=== PATIENT | female | born 1970 | race Caucasian/White ===

== ENCOUNTER 2016-09-18 15:13 | Emergency (ER) | payer OTHER ==
--- NOTE | 2016-09-18 15:20 | PDOC ---
History of Present Illness <Rosie Londono - Last Filed: 09/18/16 17:57> - General History Source: Patient Exam Limitations: No Limitations - History of Present Illness Initial Comments: 45 yo F history hypothyroid presents with fatigue, weakness, abdominal pain, R flank pain. She states she has had urinary frequency and urgency for the past 1.5 weeks. She developed low back/flank pain and was prescribed percocet by her PMD for possible low back strain. However, the symptoms have not gone away. The urinary frequency has worsened, now she is urinating approximately 10 times per day. <Ekaterina Robison - Last Filed: 09/19/16 12:07> - General Chief Complaint: Urinary Problem Stated Complaint: urinary freq Time Seen by Provider: 09/18/16 15:20 Past History <Rosie Londono - Last Filed: 09/18/16 17:57> <Ekaterina Robison - Last Filed: 09/19/16 12:07> - Past Medical History Allergies/Adverse Reactions: Allergies Allergy/AdvReac Type Severity Reaction Status Date / Time fentanyl Allergy Verified 09/18/16 15:20 meperidine HCl [From Demerol] Allergy Verified 09/18/16 15:20 sulfamethoxazole AdvReac Verified 09/18/16 15:20 [From Bactrim] trimethoprim [From Bactrim] AdvReac Verified 09/18/16 15:20 Home Medications: Ambulatory Orders Sermorelin Acetate 0 gm MC ASDIR 09/18/16 Thyroid,Pork [[place] Thyroid] 60 mg PO DAILY 09/18/16 Review of Systems - Review of Systems Able to Perform ROS?: Yes Comments:: GENERAL/CONSTITUTIONAL: No fever or chills. +Weakness. HEAD, EYES, EARS, NOSE AND THROAT: No change in vision. No ear pain or discharge. No sore throat. CARDIOVASCULAR: No chest pain or shortness of breath. RESPIRATORY: No cough, wheezing, or hemoptysis. GASTROINTESTINAL: No nausea, vomiting, diarrhea or constipation. GENITOURINARY: No dysuria. +Frequency and urgency. +Flank pain. MUSCULOSKELETAL: No joint or muscle swelling or pain. No neck or back pain. SKIN: No rash NEUROLOGIC: No headache, vertigo, loss of consciousness, or change in strength/ sensation. ENDOCRINE: No increased thirst. No abnormal weight change. HEMATOLOGIC/LYMPHATIC: No anemia, easy bleeding, or history of blood clots. ALLERGIC/IMMUNOLOGIC: No hives or skin allergy. <Ekaterina Robison - Last Filed: 09/19/16 12:07> *Physical Exam - Vital Signs Last Vital Signs Temp Pulse Resp BP Pulse Ox 98.9 F 85 17 106/65 100 09/18/16 15:16 09/18/16 15:16 09/18/16 15:16 09/18/16 15:16 09/18/16 15:16 <Rosie Londono - Last Filed: 09/18/16 17:57> - Physical Exam Comments: GENERAL: Awake, alert, and fully oriented, in no acute distress. Extremely anxious. HEAD: No signs of trauma EYES: PERRLA, EOMI, sclera anicteric, conjunctiva clear ENT: Auricles normal inspection, hearing grossly normal, nares patent, oropharynx clear without exudates. Moist mucosa NECK: Normal ROM, supple, no lymphadenopathy, JVD, or masses LUNGS: Breath sounds equal, clear to auscultation bilaterally. No wheezes, and no crackles HEART: Regular rate and rhythm, normal S1 and S2, no murmurs, rubs or gallops ABDOMEN: Soft, nontender, normoactive bowel sounds. No guarding, no rebound. No masses. No CVAT. EXTREMITIES: Normal range of motion, no edema. No clubbing or cyanosis. No cords, erythema, or tenderness NEUROLOGICAL: Cranial nerves II through XII grossly intact. Normal speech, normal gait SKIN: Warm, Dry, normal turgor, no rashes or lesions noted. BREAST EXAM: L breast examined at patient request- noted to have small nodule in the L areola, no surrounding erythema, induration, no drainage. Nodule was soft and mobile. <Ekaterina Robison - Last Filed: 09/19/16 12:07> ED Treatment Course - LABORATORY CBC & Chemistry Diagram: 09/18/16 16:30 09/18/16 16:30 - ADDITIONAL ORDERS Additional order review: Laboratory Results 09/18/16 09/18/16 16:30 15:20 Sodium 136 Potassium 4.4 Chloride 102 Carbon Dioxide 26 Anion Gap 8 BUN 13 Creatinine 0.6 Creat Clearance w eGFR > 60 Random Glucose 82 Calcium 9.1 Total Bilirubin 0.9 AST 19 ALT 19 Alkaline Phosphatase 37 Total Protein 6.5 Albumin 4.1 Urine Color Yellow Urine Appearance Clear Urine pH 7.0 Ur Specific Mchenry 1.015 Urine Protein Negative Urine Glucose (UA) Negative Urine Ketones Negative Urine Blood Negative Urine Nitrite Negative Urine Bilirubin Negative Urine Urobilinogen 0.2 e.u/dl Ur Leukocyte Esterase Negative Urine HCG, Qual Negative 09/18/16 16:30 RBC 4.02 MCV 88.7 MCHC 34.8 RDW 12.8 MPV 8.2 Neutrophils % 66.3 Lymphocytes % 21.9 Monocytes % 8.6 Eosinophils % 2.2 Basophils % 1.0 - RADIOLOGY Radiograph Interpretation: 09/18/16 17:57 Renal/Pelvic Ultrasound as reviewed by Dr. Mix reports normal uterus without evidence of stones, masses, or bladder wall thickening with normal ureteral jets and no suspicious findings. Right ovarian cysts identified with small amount of free fluid in the floor of the pelvis. <Rosie Londono - Last Filed: 09/18/16 17:57> - LABORATORY CBC & Chemistry Diagram: 09/18/16 16:30 09/18/16 16:30 <Ekaterina Robison - Last Filed: 09/19/16 12:07> Medical Decision Making - Medical Decision Making Patient initially complained of urinary frequency and urgency. She also stated that she has recently gained 10 lbs since starting sermorelin and an additional supplement for weight loss. She c/o L flank pain which can get severe at times. She states that she is certain that she has a "severe kidney infection". She has had no vomiting, fever. No foul-smelling urine. Her urine is clear and yellow in the ED. UA is wnl. UCx sent, as she has had previous UTI that was not detected on a UA. After the UA was wnl, I obtained labs to check lytes, kidney function, and CBC. No abnormal findings. Sono of the pelvis was obtained, at which time patient requested that the tech examine her kidneys as well. She has two ovarian cysts on R (one of which was known), no other acute findings. I discussed all results with patient with exception of TSH/Free T4, which are pending. Recommended outpatient f/u for the nodule on the L breast (possibly a cyst, no signs of infection) and the urinary symptoms, which may be either due to cystitis that was not visible on the UA, or possibly stress incontinence ( she mentioned that she wet bed recently, has history of prior vaginal delivery) . 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 I also counseled to discuss the hormone supplements with her PMD, as she obtains them from a [employer] which she stated told her "there are zero side effects". I explained that in any supplement, but particularly hormone-derived supplements, this is highly unlikely, and it is unclear if it is causing her symptoms. Stable for DC home. <Ekaterina Robison - Last Filed: 09/19/16 12:07> *DC/Admit/Observation/Transfer - Attestations Scribe Attestion: 09/18/16 18:00 Documentation prepared by Rosie Londono, acting as medical billing clerk for Ekaterina Robison MD. <Rosie Londono - Last Filed: 09/18/16 17:57> - Discharge Dispostion Admit: No <Ekaterina Robison - Last Filed: 09/19/16 12:07> Diagnosis at time of Disposition: Urinary frequency - Discharge Dispostion Disposition: HOME Condition at time of disposition: Stable - Patient Instructions Printed Discharge Instructions: DI for Pelvic Pain
[2016-09-18 15:35] VITALS: BP 106/65; PULSE 85; TEMP 98.9; BMI 22.4
[2016-09-18 16:17] LABS: URINE APPEARANCE Clear; URINE BILIRUBIN Negative (NEGATIVE); URINE BLOOD Negative (NEGATIVE); URINE GLUCOSE (UA) Negative (NEGATIVE); URINE KETONE Negative (NEGATIVE); URINE LEUK ESTERASE Negative (NEGATIVE); URINE NITRITE Negative (NEGATIVE); URINE PROTEIN Negative (NEGATIVE); URINE UROBILINOGEN 0.2 E.U/dl (0.2-1.0)
[2016-09-18 16:18] LABS: URINE COLOR YELLOW
[2016-09-18 16:57] LABS: EOSINOPHIL 2.2 % (0-4.5); MCH 30.9 pg (25.7-33.7); MCHC 34.8 g/dl (32.0-36.0); MEAN CELL VOLUME 88.7 fl (80-96); MEAN PLT VOLUME 8.2 fl (7.5-11.1); NEUTROPHILS 66.3 % (42.8-82.8); PLATELET COUNT 279 K/MM3 (134-434); RDW 12.8 % (11.6-15.6); WHITE BLOOD COUNT 4.7 K/mm3 (4.0-10.8)
[2016-09-18 17:05] LABS: ALBUMIN 4.1 g/dl (3.5-5.0); ALK PHOS 37 U/L (32-92); ANION GAP 8 (8-16); BILIRUBIN,TOTAL 0.9 mg/dl (0.2-1.0); CALCIUM 9.1 mg/dl (8.4-10.2); CO2 26 mmol/L (22-28); CREATININE 0.6 mg/dl (0.6-1.3); GLUCOSE,RANDOM 82 mg/dl (74-106); SGOT/AST 19 U/L (10-42); SGPT/ALT 19 U/L (10-40); TOT PROT 6.5 g/dl (6.4-8.3)
[2016-09-18 20:39] LABS: THYROID STIMULATING HORMONE 0.13 uIU/ml (0.358-3.74)
== END 2016-09-18 18:12 | disposition home or self-care (01) ==
LOC: FER 15:13
DX: R35.0 Frequency of micturition (principal)
CPT/HCPCS: 36415; 76775-TC; 76856-TC; 80053; 81003; 84439; 84443; 84703; 85025; 87086; 99282-25

== ENCOUNTER 2018-02-15 15:03 | Emergency (ER) | payer OTHER ==
--- NOTE | 2018-02-15 15:19 | PDOC ---
Rapid Medical Evaluation Chief Complaint: Psychiatric Time Seen by Provider: 02/15/18 15:15 Medical Evaluation: Allergies Allergy/AdvReac Type Severity Reaction Status Date / Time fentanyl Allergy Verified 09/18/16 15:20 meperidine HCl [From Demerol] Allergy Verified 09/18/16 15:20 sulfamethoxazole AdvReac Verified 09/18/16 15:20 [From Bactrim] trimethoprim [From Bactrim] AdvReac Verified 09/18/16 15:20 02/15/18 15:15 I have performed a brief in-person evaluation of this patient. The patient presents with a CC of: Anxiety/Stress HPI: Pt states she is going to be evicted and she owes back taxes and her bank account has been frozen. She denies SI or HI at present however she states, " If I don't get my money back I will have SI." No plan at present. Pertinent PE findings: Skin: Clear Heart: RRR Lungs: Clear MS: Moves all extremities without difficulty. Psych: Tearful. Admits to SI. I have ordered the following: Social Work consult and psych protocol labs. The patient will proceed to the ED for further evaluation.
[2018-02-15 15:30] VITALS: BMI 21.9
--- NOTE | 2018-02-15 16:19 | PDOC ---
History of Present Illness - General Chief Complaint: Psychiatric Stated Complaint: CAN NOT EAT OR SLEEP, DEPRESSION Time Seen by Provider: 02/15/18 15:15 - History of Present Illness Initial Comments: 47 year old female with history of hypothyroidism presenting with anxiety over many recent hardships and questionable of self harming ideation. She states that she has had many financial hardships that are hindering her. Her main issue is to have a social psychologist help her with her tax issue and housing issues. In triage there was questionable suicidal ideation as the the patient was asked "Are you suicidal?" she responded "No, but I will be if I lose all of my money." She denied any active SI, HI, previous SI attempt or any diagnosed psyciatric disorder besides jeb mild anxiety which she was recently given benzodiazepines for. 02/15/18 16:03 Past History - Past Medical History Allergies/Adverse Reactions: Allergies Allergy/AdvReac Type Severity Reaction Status Date / Time fentanyl Allergy Verified 02/15/18 15:16 meperidine HCl [From Demerol] Allergy Verified 02/15/18 15:16 sulfamethoxazole AdvReac Verified 02/15/18 15:16 [From Bactrim] trimethoprim [From Bactrim] AdvReac Verified 02/15/18 15:16 Home Medications: Ambulatory Orders Sermorelin Acetate 0 gm MC ASDIR 09/18/16 Thyroid,Pork [[place] Thyroid] 60 mg PO DAILY 09/18/16 COPD: No DVT: No Other medical history: Shimotos - Immunization History Immunization Up to Date: Yes - Suicide/Smoking/Psychosocial Hx Smoking History: Never smoked Information on smoking cessation initiated: No Hx Alcohol Use: No Drug/Substance Use Hx: No Substance Use Type: Alcohol Review of Systems - Review of Systems Constitutional: No: Chills, Diaphoresis, Fever HEENTM: No: Blurred Vision, Tearing Respiratory: No: Cough, Shortness of Breath Cardiac (ROS): No: Chest Pain, Irregular Heart Rate, Lightheadedness ABD/GI: No: Constipated, Diarrhea, Nausea : No: Burning, Dysuria, Discharge Musculoskeletal: No: Back Pain, Gout, Joint Pain Integumentary: No: Erythema, Flushing, Lesions Neurological: No: Headache, Numbness, Paresthesia Psychiatric: Yes: Anxiety, Stressors, Sleep Pattern Change. No: Depression *Physical Exam - Vital Signs Last Vital Signs Temp Pulse Resp BP Pulse Ox 98.4 F 91 H 18 138/94 100 02/15/18 15:18 02/15/18 15:18 02/15/18 15:18 02/15/18 15:18 02/15/18 15:18 - Physical Exam General Appearance: Yes: Nourished, Appropriately Dressed. No: Apparent Distress HEENT: positive: EOMI, JOSE E, Normal ENT Inspection, Normal Voice Neck: positive: Trachea midline, Normal Thyroid, Supple. negative: Tender, Rigid Respiratory/Chest: positive: Lungs Clear, Normal Breath Sounds. negative: Chest Tender, Respiratory Distress, Accessory Muscle Use Cardiovascular: positive: Regular Rhythm, Regular Rate Gastrointestinal/Abdominal: positive: Normal Bowel Sounds, Flat, Soft. negative : Tender Lymphatic: negative: Adenopathy, Tenderness Musculoskeletal: positive: Normal Inspection. negative: CVA Tenderness, Decreased Range of Motion Extremity: positive: Normal Capillary Refill, Normal Inspection, Normal Range of Motion. negative: Tender Integumentary: positive: Normal Color, Dry, Warm Neurologic: positive: vp integration II-XII NML intact, Fully Oriented, Alert, Normal Mood/ Affect, Normal Response, Motor Strength 5/5 Medical Decision Making - Medical Decision Making 47 year old with history of hashimotos thyroiditis and recent diagnosis of anxiety presenting because of a need to see social work for housing issues and monetary issues. Patient was very anxious and persistent but not actively suicidal or homicidal. All labs WNL shown on patient's EHR on her electronic device all drawn a few days prior. Social work was not available at our facility right now so she will return tomorrow morning. 02/15/18 17:46 *DC/Admit/Observation/Transfer Diagnosis at time of Disposition: Anxiety, Social fears - Discharge Dispostion Disposition: HOME Condition at time of disposition: Improved Decision to Admit order: No - Referrals Referrals: [facility] [place] [facility] at [place] [Provider Group] - Patient Instructions Additional Instructions: Please follow up with [employer] for your housing issues and tax issues. Please return to our ED tomorrow morning for your secondary social studies teacher. We will be able to get your social psychologist then. Please return to the ED at anytime if you have medical issues. Please use our medical clinic on this sheet for any medical follow up that you need. - Post Discharge Activity
--- NOTE | 2018-02-15 17:03 | PDOC ---
Attending Attestation - Resident Resident Name: IvánJungjared - ED Attending Attestation I have performed the following: I have examined & evaluated the patient, The case was reviewed & discussed with the resident, I agree w/resident's findings & plan, Exceptions are as noted - HPI HPI: 02/15/18 17:04 47 yo m female has c/o insomnia because she is primarily stressed about her finances - Physicial Exam PE: 02/15/18 17:22 slender 47 yo female head ncat eyes eomi neck supple lungs cta b/l cvs [id number] abd flat ,nontender ext no e/c/c neuro axox3,ambulatory with ease ,no gross focal deficits - Medical Decision Making 02/15/18 17:02 47 yo female with multiple life stresses especially financial troubles 02/15/18 17:20 this pt has no actual suicidal plan and no medical emergency at this time. She really came to talk to a medical social consultant
[2018-02-15 17:50] VITALS: BP 130/84; PULSE 86; TEMP 98.1
== END 2018-02-15 17:50 | disposition home or self-care (01) ==
LOC: JER 15:03
DX: F41.0 Panic disorder [episodic paroxysmal anxiety] (principal); F40.11 Social phobia, generalized; E06.3 Autoimmune thyroiditis
CPT/HCPCS: 99283-25

== ENCOUNTER 2019-06-22 00:56 | Emergency (ER) | payer OTHER ==
[2019-06-22 01:30] VITALS: BP 134/86; PULSE 74; TEMP 98.1; BMI 21.1
--- NOTE | 2019-06-22 01:35 | PDOC ---
History of Present Illness - General Chief Complaint: Pain Stated Complaint: THROAT PAIN S/P SURGERY - History of Present Illness Initial Comments: This 48-year-old woman with a history of tonsillectomy performed 4 days ago presents with throat pain. The patient states that she had been taking oxycodone as prescribed by her ENT surgeon for her postop pain up until 2 days ago. At that time she switched to Tylenol alternating with Motrin. Throughout the day, she noted increased discomfort in her throat. She called her ENT surgeon who prescribed hydromorphone tablets. However, she is afraid to take the hydromorphone tablets. She has no fever/chills/wheezing/shortness of breath. She has not been drooling and is able to swallow her own secretions without difficulty. She states that she sees pockets of pus in her throat and would like them to be removed. Past History - Past Medical History Allergies/Adverse Reactions: Allergies Allergy/AdvReac Type Severity Reaction Status Date / Time fentanyl Allergy Verified 02/15/18 15:16 meperidine HCl [From Demerol] Allergy Verified 02/15/18 15:16 sulfamethoxazole AdvReac Verified 02/15/18 15:16 [From Bactrim] trimethoprim [From Bactrim] AdvReac Verified 02/15/18 15:16 Home Medications: Ambulatory Orders Sermorelin Acetate 0 gm MC ASDIR 09/18/16 Thyroid,Pork [[place] Thyroid] 60 mg PO DAILY 09/18/16 Acetaminophen Oral Solution [Tylenol Oral Solution -] 650 mg PO TID #120 ml Acetaminophen [Tylenol .Extra-Strength -] 1,000 mg PO PRN 06/22/19 Ibuprofen 600 mg PO PRN 06/22/19 Oxycodone HCl 15 mg PO PRN 06/22/19 COPD: No DVT: No - Immunization History Immunization Up to Date: Yes - Psycho Social/Smoking Cessation Hx Smoking History: Never smoked Information on smoking cessation initiated: No Hx Alcohol Use: No Drug/Substance Use Hx: No Substance Use Type: Alcohol Review of Systems - Review of Systems Able to Perform ROS?: Yes Comments:: 12 point review of systems is negative except for what is noted in the history of present illness *Physical Exam - Vital Signs Last Vital Signs Temp Pulse Resp BP Pulse Ox 98.1 F 74 16 134/86 100 06/22/19 01:26 06/22/19 01:26 06/22/19 01:26 06/22/19 01:06/22/19 01:26 - Physical Exam GENERAL: Adult female, upset but in no acute distress; patient phonating normally and swallowing secretions without difficulty HEAD: Normal with no signs of trauma. EYES: PERRLA, EOMI, sclera anicteric, conjunctiva clear. ENT: Ears normal, nares patent, bilateral small patches of exudate at tonsillectomy sites. No edema or masses noted. NECK: Normal range of motion, supple without lymphadenopathy, JVD, or masses. No stridor LUNGS: Breath sounds equal, clear to auscultation bilaterally. No wheezes, and no crackles. HEART:Regular rate and rhythm, normal S1 and S2 without murmur, rub or gallop. ABDOMEN:.normal bowel sounds No guarding,tenderness or rebound.No masses No distention. EXTREMITIES: Normal range of motion, no edema. No clubbing or cyanosis. No erythema, or tenderness. NEUROLOGICAL: Cranial nerves II through XII grossly intact. Normal speech. No focal neurological deficits. MUSCULOSKELETAL: Back non-tender to palpation, no CVA tenderness SKIN: Warm, Dry, normal turgor, no rashes or lesions noted. Medical Decision Making - Medical Decision Making This 48-year-old woman presents 4 days s/p tonsillectomy with throat pain. The patient had scaled down her analgesic regimen from oxycodone to ibuprofen alternating with acetaminophen 2 days ago. She noted increase in pain in the last day and is worried that she has an infection in her throat. Exam as noted with no evidence of erythema/edema/masses. There are exudative patches along the tonsillectomy site consistent with fibrinous healing eschar on the wound site but no evidence of abscess or edema in the area. There is no stridor or wheezing on exam. Exam findings discussed with the patient: No clear evidence of infection at this time. Patient should continue to hydrate as much as possible. She should use the hydromorphone tablets that her ENT surgeon prescribed today. She should make sure that she has a large amount of fiber in her diet and take laxatives as needed to prevent constipation while she is taking narcotic medications. She should follow-up with her ENT surgeon as planned. She should call him in the morning to arrange follow-up within the next 2days She should return to the ER if she develops any shortness of breath/extreme throat pain/fever Discharge - Discharge Information Problems reviewed: Yes Clinical Impression/Diagnosis: Throat pain Condition: Stable Disposition: HOME - Additional Discharge Information Prescriptions: Acetaminophen Oral Solution [Tylenol Oral Solution -] 650 mg PO TID #120 ml - Follow up/Referral - Patient Discharge Instructions Patient Printed Discharge Instructions: DI for Prescription Opioid Use Additional Instructions: Continue alternating Tylenol with Motrin as previously Hydromorphone (Dilaudid)tabs as needed for severe pain as prescribed by your surgeon Follow-up with your ENT surgeon within the next 1 to 2 days Return to ER if you have fever, difficulty breathing or worsening difficulty swallowing - Post Discharge Activity
[2019-06-22] MEDS ORDERED: ACETAMINOPHEN 650 MG/20.3 ML ORAL SOLUTION (CUPS) ONE (02:04)
[2019-06-22] MEDS ORDERED: ACETAMINOPHEN 650 MG/20.3 ML ORAL SOLUTION (CUPS) PO ONE (02:04)
== END 2019-06-22 02:30 | disposition home or self-care (01) ==
LOC: FER 00:56
DX: R07.0 Pain in throat (principal); Z88.8 Allergy status to other drugs, medicaments and biological substances
CPT/HCPCS: 99281-25

== ENCOUNTER 2019-08-05 00:13 | Emergency (ER) | payer OTHER ==
[2019-08-05 00:26] VITALS: BP 120/81; PULSE 89; TEMP 98.2; BMI 21.2
--- NOTE | 2019-08-05 00:43 | PDOC ---
History of Present Illness - General Chief Complaint: Sore Throat Stated Complaint: THRUSH/SORE THROAT Time Seen by Provider: 08/05/19 00:18 History Source: Patient Exam Limitations: No Limitations - History of Present Illness Initial Comments: 08/05/19 00:35 This is a 48-year-old female who comes in complaining of a white tongue. Patient is convinced that she has thrush. Patient also says that it feels like there is something down in her throat and is insisting that she needs to have an endoscopy in the emergency department. I explained to patient that we are unable to do an endoscopy in the emergency department. Patient denies any fevers or chills. Patient denies any cough congestion or shortness of breath. Patient says it feels like it is difficult for her to swallow sometimes. Patient said that she scraped some white stuff off of her tongue and looked on the Internet and her tongue look like pictures of oral thrush so she is convinced she has oral thrush. Allergies: as per nursing notes Past Medical History: none Social history: Lives with family. No smoking. No alcohol. No illicit drugs. Surgical history: None General: No fevers or chills, no weakness, no weight loss HEENT: No change in vision. No sore throat,. No ear pain CardioVascular: no chest discomfort. No shortness of breath Respiratory:No cough, or wheezing. Gastrointestinal: no nausea, vomiting, diarrhea or constipation, No rectal bleeding Genitourinary: No dysuria, hematuria, or frequency Musculoskeletal: No joint or muscle pain or swelling Neurologic: No headache, vertigo, dizziness or loss of consciousness Psychiatric: nor depression Skin: No rashes or easy bruising Endocrine: no increased thirst or abnormal weight change Allergic: no skin or latex allergy All other systems reviewed and normal Exam: General: Well-nourished well-developed individual, no acute distress HEENT: Throat: Normal, tonsils normal, no erythema or exudate Neck: Supple, no meningeal signs, no lymphadenopathy Eyes::Pupils equal reactive and round, extraocular motion intact Chest: Nontender to palpation Cardiac: S1-S2 normal, regular rate and rhythm, no murmurs rubs or gallops Respiratory: Lungs clear to auscultation bilateral Abdomen: Soft, nondistended, normal bowel sounds, there is no tenderness on palpation diffusely Extremities: Warm, dry, no cyanosis, clubbing, or edema Skin: No rashes Neuro: Alert and oriented x3, CN II - XII intact, nonfocal exam with normal strength, normal sensation, normal reflexes, normal gait, Psych: Normal mood and affect Past History - Past Medical History Allergies/Adverse Reactions: Allergies Allergy/AdvReac Type Severity Reaction Status Date / Time fentanyl Allergy Verified 02/15/18 15:16 meperidine HCl [From Demerol] Allergy Verified 02/15/18 15:16 sulfamethoxazole AdvReac Verified 02/15/18 15:16 [From Bactrim] trimethoprim [From Bactrim] AdvReac Verified 02/15/18 15:16 Home Medications: Ambulatory Orders Dextroamphetamine/Amphetamine [Adderall Xr 15 mg Capsule] 15 mg PO DAILY 08/05/19 Levothyroxine Sodium [Levoxyl] 100 mcg PO DAILY 08/05/19 Liothyronine Sodium [Cytomel -] 5 mcg PO DAILY 08/05/19 Nystatin/Dpha/Lido/Sucrafate [Nystatin Mouth Rinse *Df Formula*] 5 ml MM Q6HPO #1 bottle 08/05/19 COPD: No DVT: No Thyroid Disease: Yes (TRACY) Other medical history: TONSILECTOMY 06/20 - Immunization History Immunization Up to Date: Yes - Psycho Social/Smoking Cessation Hx Smoking History: Never smoked Hx Alcohol Use: No Drug/Substance Use Hx: No Substance Use Type: Alcohol *Physical Exam - Vital Signs Last Vital Signs Temp Pulse Resp BP Pulse Ox 98.2 F 89 16 120/81 100 08/05/19 00:19 08/05/19 00:19 08/05/19 00:19 08/05/19 00:19 08/05/19 00:19 Discharge - Discharge Information Problems reviewed: Yes Clinical Impression/Diagnosis: Thrush, oral Condition: Stable Disposition: HOME - Admission No - Follow up/Referral Referrals: Deyvi Palomares [Primary Care Provider] - - Patient Discharge Instructions Additional Instructions: I have sent a prescription to your pharmacy for a nystatin mouthwash. Get the mouthwash and use as directed 1 teaspoon every 6 hours swish and swallow. Return to the emergency department immediately with ANY new, persistent or worsening symptoms. Continue any medications as previously prescribed by your physician. You should follow up with your primary doctor as soon as possible regarding today's emergency department visit. . Please make sure your doctor reviews the results of your emergency evaluation. Thank you for coming to the Emergency Department today for your care. It was a pleasure to see you today. Please note that your evaluation is INCOMPLETE until you follow-up with your doctor. - Post Discharge Activity
== END 2019-08-05 00:46 | disposition home or self-care (01) ==
LOC: FER 00:13
DX: B37.0 Candidal stomatitis (principal); Z88.8 Allergy status to other drugs, medicaments and biological substances; E06.3 Autoimmune thyroiditis
CPT/HCPCS: 99282-25

== ENCOUNTER 2019-11-22 15:08 | Emergency (ER) | payer OTHER ==
--- NOTE | 2019-11-22 15:25 | PDOC ---
Rapid Medical Evaluation Time Seen by Provider: 11/22/19 15:19 Medical Evaluation: Allergies Allergy/AdvReac Type Severity Reaction Status Date / Time fentanyl Allergy Verified 11/22/19 15:19 meperidine HCl [From Demerol] Allergy Verified 11/22/19 15:19 sulfamethoxazole AdvReac Verified 11/22/19 15:19 [From Bactrim] trimethoprim [From Bactrim] AdvReac Verified 11/22/19 15:19 11/22/19 15:21 CC: left breast pain with lumps, has implants. had mri done 2 years ago and needs a repeat mri before breast surgeon will remove them. no drainage form left breast, no open lesions Exam: anxious bur redirectable, noted linear rippling to left breast laterally plan: none Discharge Disposition - Diagnosis Left breast mass - Referrals - Patient Instructions - Post Discharge Activity
[2019-11-22 15:38] VITALS: BP 147/84; PULSE 106; TEMP 99.1; BMI 19.1
--- NOTE | 2019-11-22 18:17 | PDOC ---
History of Present Illness - General Chief Complaint: Pain Stated Complaint: LT BREAST INFECTION Time Seen by Provider: 11/22/19 15:19 - History of Present Illness Initial Comments: 11/22/19 18:14 48-year-old female with painful breast implants. She is requesting an MRI. She has been having pain been treated with multiple courses of antibiotics antifungal treatments and continues to have pain. She states she needs a revision and a left and no surgeon has wanted to perform the surgery on her. Past History - Medical History Allergies/Adverse Reactions: Allergies Allergy/AdvReac Type Severity Reaction Status Date / Time fentanyl Allergy Verified 11/22/19 15:19 meperidine HCl [From Demerol] Allergy Verified 11/22/19 15:19 sulfamethoxazole AdvReac Verified 11/22/19 15:19 [From Bactrim] trimethoprim [From Bactrim] AdvReac Verified 11/22/19 15:19 Home Medications: Ambulatory Orders Dextroamphetamine/Amphetamine [Adderall Xr 15 mg Capsule] 15 mg PO DAILY 08/05/19 Fluconazole [Diflucan] 150 mg PO ONCE #14 tablet 08/05/19 Levothyroxine Sodium [Levoxyl] 100 mcg PO DAILY 08/05/19 Liothyronine Sodium [Cytomel -] 5 mcg PO DAILY 08/05/19 Nystatin/Dpha/Lido/Sucrafate [Nystatin Mouth Rinse *Df Formula*] 5 ml MM Q6HPO #1 bottle 08/05/19 COPD: No DVT: No Psychiatric Problems: Yes (Anxiety) Thyroid Disease: Yes (HOSHIMOTOS) - Immunization History Immunization Up to Date: Yes - Psycho-Social/Smoking History Smoking History: Never smoked Have you smoked in the past 12 months: No - Substance Abuse Hx (Audit-C & DAST Scrn) How often the patient has a drink containing alcohol: Never Score: In Men: 4 or > Positive; In Women: 3 or > Positive: 0 Screen Result (Pos requires Nsg. Audit-10AR): Negative In the last yr the pt used illegal drug/Rx for NonMed reason: No Score: Yes response is considered Positive: 0 Screen Result (Positive result requires Nsg. DAST-10): Negative Review of Systems - Review of Systems Constitutional: No: Fever *Physical Exam - Vital Signs Last Vital Signs Temp Pulse Resp BP Pulse Ox 99.1 F 106 H 18 147/84 100 11/22/19 15:20 11/22/19 15:20 11/22/19 15:20 11/22/19 15:20 11/22/19 15:20 - Physical Exam 11/22/19 18:15 Bilateral breast examination was done with female nurse in the room for the entire examination. There is irregularity to the breast tissue. Diffuse tenderness around the areola.No nipple discharge otherwise normal skin color and temperature. The saline implant is palpable at the 6 o'clock position on both breasts. Medical Decision Making - Medical Decision Making 11/22/19 18:16 No rupture on sonogram of bilateral breast today. We will have patient follow- up with general surgery. Discharge - Discharge Information Problems reviewed: Yes Clinical Impression/Diagnosis: Pain from breast implant Clinical Impression/Diagnosis: (Ruled Out): Left breast mass Disposition: HOME - Admission No - Follow up/Referral Referrals: Deyvi Palomares [Primary Care Provider] - Jericho Chen MD [Staff Physician] - - Patient Discharge Instructions Additional Instructions: Return to the emergency room for worsening issues and without fail follow-up with general surgery in 1 to 2 days for further evaluation and treatment options. - Post Discharge Activity
== END 2019-11-22 18:27 | disposition home or self-care (01) ==
LOC: JER 15:08
DX: N64.4 Mastodynia (principal)
CPT/HCPCS: 76642-TC-50; 99283-25

== ENCOUNTER 2020-07-26 17:49 | Emergency (ER) | payer OTHER ==
[2020-07-26 18:28] VITALS: BP 132/83; PULSE 98; TEMP 98; BMI 15.7
== END 2020-07-26 20:40 | disposition home or self-care (01) ==
LOC: JERFT 17:49
DX: M79.674 Pain in right toe(s) (principal)
CPT/HCPCS: 73630-TC-RT-FY; 99284-25

== ENCOUNTER 2020-07-29 13:26 | Emergency (ER) | payer OTHER ==
[2020-07-29 13:52] VITALS: BP 117/59; PULSE 92; TEMP 98.7; BMI 20.3
[2020-07-29] MEDS ORDERED: ACETAMINOPHEN 500 MG TABLET (FP) PO ONE (15:58)
[2020-07-29 17:22] LABS: BASO % 0.6 % (0-2.0); EOS % 1.9 % (0-4.5); HEMATOCRIT 33.4 % (32.4-45.2); HEMOGLOBIN 11.5 GM/dL (10.7-15.3); LYMPH % 36.6 % (8-40); MCH 31.2 pg (25.7-33.7); MCHC 34.5 g/dl (32.0-36.0); MEAN CELL VOLUME 90.4 fl (80-96); MEAN PLT VOLUME 8.7 fl (7.5-11.1); MONO % 6.1 % (3.8-10.2); NEUT % 54.8 % (42.8-82.8); PLATELET COUNT 283 K/MM3 (134-434); RDW 13.8 % (11.6-15.6)
[2020-07-29] MEDS ORDERED: ACETAMINOPHEN 500 MG TABLET (FP) ONE (17:36)
[2020-07-29 17:46] LABS: CHLORIDE 106 mmol/L (98-107); POTASSIUM 3.8 mmol/L (3.5-5.1); SODIUM 140 mmol/L (136-145)
[2020-07-29 17:48] LABS: ALBUMIN 3.7 g/dl (3.4-5.0); ANION GAP 5 MMOL/L (8-16); BLOOD UREA NITROGEN 14.3 mg/dL (7-18); CALCIUM 8.5 mg/dL (8.5-10.1); CO2 29 mmol/L (21-32); MAGNESIUM 2.2 mg/dL (1.8-2.4)
[2020-07-29 17:49] LABS: GLUCOSE,RANDOM 95 mg/dL (74-106)
[2020-07-29 17:52] LABS: CREATININE 0.7 mg/dL (0.55-1.3); SGOT/AST 8 U/L (15-37); SGPT/ALT 17 U/L (13-61)
[2020-07-29 17:53] LABS: BILIRUBIN,TOTAL 0.4 mg/dL (0.2-1); TOT PROT 6.7 g/dl (6.4-8.2)
[2020-07-29 17:54] LABS: ALK PHOS 40 U/L (45-117)
== END 2020-07-29 19:39 | disposition home or self-care (01) ==
LOC: JER 13:26
DX: R55 Syncope and collapse (principal); M79.671 Pain in right foot
CPT/HCPCS: 36415; 80053; 82550; 83735; 84484; 85025; 93005; 93010; 99285-25